=== PATIENT | male | born 1990 | race Caucasian/White ===

== ENCOUNTER 2020-01-03 11:23 | Emergency (ER) | payer OTHER, SELFPAY ==
--- NOTE | 2020-01-03 11:52 | ED.FALL ---
HPI - Fall General Chief Complaint: Fall Stated Complaint: rt groin/rt upper leg pain Time Seen by Provider: 01/03/20 11:56 Source: patient and RN notes reviewed Mode of arrival: ambulatory Limitations: no limitations History of Present Illness HPI Narrative: 29 year old male who presents to [facility] care with complaint of carrying a box today and he slipped almost doing the splits. Patient states that since incident he has pain to his right inner thigh. He denies any testicular pain, states that pain to his right inner thigh increases with ambulation and with lifting. Patient states that he did apply ice packs to his left inner upper thigh after injury occurred. Patient noted to have minimal swelling noted to his right inner thigh, no redness or bruising noted, denies any tingling or numbness to his right thigh, circulation and sensation intact to his right leg with strong pulses noted. MD complaint: fall Fall from: standing (slipped while carrying box almost did splits) Loss of consciousness: none Prolonged down time: no Symptoms prior to fall: none Context: tripped/slipped Location of injury: other (right groin) Location of injury - extremities: Right: thigh Severity: moderate Severity scale (1-10): 7 Quality: aching Associated symptoms (after fall): other (pain to right upper inner thigh) Related Data Home Medications Medication Instructions Recorded Confirmed No Home Medications 01/03/20 01/03/20 Allergies Allergy/AdvReac Type Severity Reaction Status Date / Time ibuprofen Allergy Rash Verified 01/03/20 12:14 Review of Systems Review of Systems: Narrative: CONSTITUTIONAL: Denies fever, chills, or sweats. EYES: Denies visual changes, redness, or discharge. ENT: Denies rhinorrhea, congestion, sore throat, or otalgia. CARDIOVASCULAR: Denies chest pain, palpitations, or edema. RESPIRATORY: Denies cough or dyspnea. GASTROINTESTINAL: Denies abdominal pain, nausea, vomiting, or diarrhea. GENITOURINARY: Denies dysuria or hematuria. SKIN: Denies rash or itching. MUSCULOSKELETAL: Denies back pain, joint pain,positive for pain to inner right thigh. NEUROLOGIC: Denies headache, numbness, or weakness. PSYCHIATRIC: Denies anxiety or depression. All systems reviewed & are unremarkable except as noted in HPI and below PMFSH Past Medical History Medical History (Updated 01/05/20 @ 16:09 by Dinorah Bazan NP) No significant past medical history Surgical screw in right hand Surgical History Surgical History (Updated 01/03/20 @ 12:14 by Dinorah Bazan NP) History of bunionectomy of right great toe Family History Family History (Updated 01/03/20 @ 12:16 by Dinorah Bazan NP) Other Asthma Cancer of pancreas Diabetes mellitus Social History Social History (Updated 01/03/20 @ 12:15 by Dinorah Bazan NP) Tobacco type: e-cigarettes/vaping Alcohol intake: current Living arrangements: with family Gender identity (if verbalized by the patient): Male Comments At time of signature, agree with nursing past medical, surgical, social and family history. There is no relevant family history pertinent to the presenting complaint Exam Narrative: Exam Narrative: GENERAL: Well-appearing, well-nourished, and in no acute distress. HEAD: Normocephalic, atraumatic. EYES: PERRLA and EOMI. ENT: Nares clear, no rhinorrhea or epistaxis. Mucous membranes moist. NECK: Supple. CHEST: Clear to auscultation. No respiratory distress. HEART: Regular rate and rhythm. No murmur heard. Normal peripheral pulses. ABDOMEN: Soft, nontender, nondistended, normal active bowel sounds. EXTREMITIES: Normal range of motion. mild edema to inner right thigh, no erthyema or bruising noted, painful on palpatiion , normal sensation, mobility and circulation SKIN: Warm, dry, no rash. NEURO: No focal deficits. Alert and oriented x3. Course Vital Signs Vital signs: Vital Signs Temperature 36.6 C 01/03/20 12:11 Pulse Rate 84
[2020-01-03 12:11] VITALS: BP 126/74; PULSE 84; RESP 20; TEMP 36.6; O2SAT 100
== END 2020-01-03 12:24 | disposition home or self-care (01) ==
PROVIDERS: Emergency Provider Registered Nurse
DX: S76.911A Strain of unspecified muscles, fascia and tendons at thigh level, right thigh, initial encounter (principal); S39.011A Strain of muscle, fascia and tendon of abdomen, initial encounter; W01.0XXA Fall on same level from slipping, tripping and stumbling without subsequent striking against object, initial encounter; F17.200 Nicotine dependence, unspecified, uncomplicated
CPT/HCPCS: 99212; G0463